=== PATIENT | female | born 1955 | race Caucasian/White ===

== ENCOUNTER 2018-10-06 15:38 | Emergency (ER) | payer BC ==
[~2018-10-06] VITALS: Ht 175.3 cm; Wt 79.0 kg
[2018-10-06 16:14] LABS: BASOPHILS # (AUTO) 0.02 x10^3/uL (0-0.1); BASOPHILS % (AUTO) 0 % (0-1); EOSINOPHILS # (AUTO) 0.09 x10^3/uL (0-0.4); EOSINOPHILS % (AUTO) 1 % (1-7); LYMPHOCYTES # (AUTO) 1.63 x10^3/uL (1-3.4); LYMPHOCYTES % (AUTO) 22 % (22-44); MD NO; MEAN CORPUSCULAR HEMOGLOBIN 28.5 pg (27.0-34.8); MEAN CORPUSCULAR HGB CONC 33.4 g/dL (32.4-35.8); MEAN CORPUSCULAR VOLUME 85.3 fL (80-100); MEAN PLATELET VOLUME 8.8 fL (7.4-10.4); MONOCYTES # (AUTO) 0.41 x10^3/uL (0.2-0.8); MONOCYTES % (AUTO) 6 % (2-9); NEUTROPHILS # (AUTO) 5.14 x10^3/uL (1.8-6.8); NEUTROPHILS % (AUTO) 71 % (42-75); PLATELET COUNT 188 x10^3/uL (130-400); RED BLOOD COUNT 5.34 x10^6/uL (3.82-5.3); RED CELL DISTRIBUTION WIDTH 14.1 % (9.6-15.2)
[2018-10-06 16:17] LABS: HCT (SEDRATE) 45.6 % (34.6-47.8)
[2018-10-06 16:24] LABS: ALBUMIN 4.2 g/dL (3.4-5.0); ANION GAP 6 mmol/L (5-15); CHLORIDE 106 mmol/L (98-107); CREATININE 0.77 mg/dL (0.55-1.02)
[2018-10-06] MEDS ORDERED: LORazepam 1MG TABLET PO ONE (16:30)
[2018-10-06] MEDS ORDERED: LORazepam 1MG TABLET ONE (16:32)
--- NOTE | 2018-10-06 16:40 | NUR ---
FIRST CONTACT WITH PT. PT SITTING UP IN [facility] [place] NOTED. FACE SYMMETRICAL, SPEECH CLEAR, +STRENGTH X4. PT REPORTS CAVAZOS AND ELEVATED BP X TWO DAYS. +MILD CHANGES IN VISION. HX OF HTN AND REPORTS COMPLIANCE WITH MEDICATIONS. PT REFUSING XANAX, "I THINK I'M ALLERGIC TO THAT ONE. I WAS TAKEN TO THE ER ONCE AFTER MY BODY GOT HOT AFTER TAKING THAT". ERP AWARE. ORDER CHANGE RECIEVED. PT MEDICATED PER EMAR WITH ATIVAN. BP/SPO2/ECG MONITORING IN PLACE. NSR ON MONITOR. SO AT BEDSIDE. Addendum: 10/06/18 at 1652 by KARTHIK DENIES CP/SOB
[2018-10-06 17:15] VITALS: BP 145/89
--- NOTE | 2018-10-06 17:35 | NUR ---
IMPROVEMENT IN BP NOTED. PT REPORTS SOME RELIEF OF CAVAZOS, "IT FEELS BETTER, IT JUST HURTS IF I TOUCH IT". DC EDUCATION PROVIDED, PT DEMONSTRATES UNDERSTANDING. PT AMBULATED STEADILY TO [facility] RN AND SO. SO TO TRANSPORT PT HOME.
== END 2018-10-06 17:37 | disposition home or self-care (01) ==
LOC: ED 17:30
DX: R51 Headache (principal); I10 Essential (primary) hypertension
CPT/HCPCS: 36415; 80048; 82040; 85025; 85651; 93005; 99284